=== PATIENT | female | born 1940 | race African-American/Black ===

== ENCOUNTER 2021-07-05 08:51 | Emergency (ER) | payer OTHER ==
[~2021-07-05] VITALS: Ht 162.6 cm; Wt 73.0 kg
[2021-07-05 09:44] VITALS: BP 141/91
[2021-07-05] MEDS ORDERED: CYCLOBENZAPRINE 10MG TABLET PO ONE (09:45)
[2021-07-05] MEDS ORDERED: IBUPROFEN 600MG TABLET PO ONE (09:45)
== END 2021-07-05 11:02 | disposition home or self-care (01) ==
LOC: ER 08:51
DX: S16.1XXA Strain of muscle, fascia and tendon at neck level, initial encounter (principal); E11.9 Type 2 diabetes mellitus without complications; I10 Essential (primary) hypertension; Z88.8 Allergy status to other drugs, medicaments and biological substances; V43.52XA Car driver injured in collision with other type car in traffic accident, initial encounter; Y93.89 Activity, other specified; Y92.488 Other paved roadways as the place of occurrence of the external cause
CPT/HCPCS: 71046; 93005; 99283